=== PATIENT | female | born 1930 | race Caucasian/White ===

== ENCOUNTER 2017-02-05 20:20 | Observation (INO) | payer OTHER, BC ==
[~2017-02-05] VITALS: Ht 157.5 cm; Wt 55.4 kg
[~2017-02-05 20:20] MED LIST: AMLODIPINE BESY10 MG; ASPIRIN81 M1 PO; Fosamax PO; HYZAAR 50-121 TABLET; HYZAAR 50-121 TABLET PO; Hyzaar 50-12.5 PO; LEVOTHYROXINE100 MCG PO; LIPITOR40 MG PO; LOSARTAN POTASS50 MG PO; METOPROLOL SUCC25 MG; METOPROLOL SUCC25 MG PO; NORVASC10 MG PO; NORVASC5 MG; Protonix PO
[2017-02-05 21:03] LABS: HEMATOCRIT 36.1 % (36.0-46.0); MCH 30.2 PG (29.0-34.0); MCHC 34.3 G/DL (30.0-36.0); MEAN PLAT.VOLUME 9.1 uM^3 (9.5-12.4); PLATELET COUNT 288 K/uL (156-360); RBC DIS.WIDTH-CV 13.2 % (11.8-14.6); WHITE BLOOD COUNT 15.8 K/uL (4.1-10.2)
[2017-02-05 21:14] LABS: CHLORIDE 103 mEq/L (99-109); POTASSIUM 4.7 mEq/L (3.7-5.4); SODIUM 138 mEq/L (136-147)
[2017-02-05 21:17] LABS: GLUCOSE 156 mg/dL (70-99)
[2017-02-05 21:18] LABS: ANION GAP 11 MEQ/L (2-14)
[2017-02-05 21:19] LABS: TOTAL BILIRUBIN 0.7 mg/dL (0.0-1.0)
[2017-02-05 21:20] LABS: ALKALINE PHOSPHATASE 67 IU/L (3-129)
[2017-02-05 21:21] LABS: GFR ESTIMATE (CALCULATED) 35 mL/min/
[2017-02-05 21:22] LABS: UREA NITROGEN (BUN) 27 mg/dL (9-23)
[2017-02-05 21:24] LABS: LIPASE 30 U/L (1.0-51.0)
[2017-02-06 00:24] LABS: C DIFF TOXIN NEGATIVE (NEGATIVE); PROBE CHECK PASS; SPECIMEN PROCESSING CONTROL PASS
[2017-02-06] MEDS ORDERED: FOSAMAX70 MG PO (00:57)
[2017-02-06] MEDS ORDERED: HYZAAR 50-121 TABLET PO (00:57)
[2017-02-06] MEDS ORDERED: LO-DOSE ASPIRIN81 M1 PO (00:58)
[2017-02-06] MEDS ORDERED: REFRESH TEARS15 ML BOTH EYES (00:59)
[2017-02-06 03:43] VITALS: BP 127/58
[2017-02-06 07:18] LABS: ADD MIUA? YES; BILIRUBIN NEGATIVE; BLOOD SMALL; COLOR AMBER ((YELLOW)); GLUCOSE (STRIP) NEGATIVE; KETONES NEGATIVE; LEUKOCYTES MODERATE; NITRITE NEGATIVE; PROTEIN (STRIP) NEGATIVE; SPECIFIC GRAVITY 1.014 (1.000-1.030)
[2017-02-06 07:27] VITALS: BP 104/53
[2017-02-06 07:47] LABS: BACTERIA RARE /HPF; EPITHELIAL CELLS RARE /HPF; MUCUS TRACE /LPF; RED BLOOD CELLS TNTC /HPF (0-5); UCUL ADDED? NO; WHITE BLOOD CELLS 30-40 /HPF (0-5)
[2017-02-06 11:35] VITALS: BP 116/56
[2017-02-06 11:50] LABS: ANION GAP 9 MEQ/L (2-14); CHLORIDE 106 MEQ/L (99-109); GFR ESTIMATE (CALCULATED) 45 mL/min/; POTASSIUM 3.9 MEQ/L (3.7-5.4); SAMPLE HEMOLYSIS CHECK 0; SAMPLE ICTERIC CHECK 0; SAMPLE LIPEMIA CHECK 0; SODIUM 137 MEQ/L (136-147); UREA NITROGEN (BUN) 27 mg/dL (9-23)
[2017-02-06 11:58] LABS: GLUCOSE 95 mg/dL (70-99)
[2017-02-06 14:57] LABS: HEMATOCRIT 28.7 % (36.0-46.0); MCH 30.8 PG (29.0-34.0); MCHC 34.5 G/DL (30.0-36.0); MCV 89.4 FL (83-99); MEAN PLAT.VOLUME 10.6 uM^3 (9.5-12.4); PLATELET COUNT 263 K/uL (156-360); RBC DIS.WIDTH-CV 13.9 % (11.8-14.6); RBC DIS.WIDTH-SD 45.1 % (39-53); WHITE BLOOD COUNT 18.7 K/uL (4.1-10.2)
[2017-02-06 14:58] LABS: EOSINOPHIL (%) 0.3 % (0-5); EOSINOPHIL COUNT 0.1 K/uL (0-0.3); IMMATURE GRANULOCYTE (%) 0.6 % (0.0-0.7); IMMATURE GRANULOCYTE COUNT 0.1 K/uL; INSTRUMENT ABS NEUTROPHIL CT 14.5 K/uL; LYMPHOCYTE COUNT 2.6 K/uL (1.0-2.8); MONOCYTE (%) 7.5 % (3-12); MONOCYTE COUNT 1.4 K/uL (0-0.8); NEUTROPHIL (%) 77.3 % (45-76); NEUTROPHIL COUNT 14.5 K/uL (1.8-6.4); RED BLOOD COUNT 3.21 M/uL (3.80-5.20)
== END 2017-02-06 16:09 | disposition home or self-care (01) ==
LOC: EME → EDBD 20:20 → EDOF 02-06 02:59 → 5WEST 02-06 03:38
PROVIDERS: Emergency Medicine; Hospitalist; Student in an Organized Health Care Education/Training Program
DX: E86.0 Dehydration (principal); I95.9 Hypotension, unspecified; K52.9 Noninfective gastroenteritis and colitis, unspecified; I10 Essential (primary) hypertension; E78.5 Hyperlipidemia, unspecified; E03.9 Hypothyroidism, unspecified
CPT/HCPCS: 80048; 80053; 81003; 83690; 85025; 85027; 87493; 99281; 99285; G0378; J1644; J7030; S0028